=== PATIENT | female | born 1935 | race Caucasian/White ===

== ENCOUNTER 2018-03-12 09:28 | Observation (INO) ==
[2018-03-12] MEDS ORDERED: Ringers Solution, Lactated 500 ML IVC SCH (10:00)
[2018-03-12 10:05] LABS: Basophils # 0.1 K/mcL (0.0-0.2); Eosinophils # 0.2 K/mcL (0.0-0.6); Eosinophils % 3.3 %; Hematocrit 26.9 % (35.3-44.9); Hemoglobin 8.6 g/dL (11.5-15.4); Immature Granulocytes % 0.2 % (0-4); Lymphocytes % 41.8 %; Mean Corpuscular Volume 109.3 fL (83.0-100.0); Mean Platelet Volume 12.9 fL (9.4-12.4); Monocytes # 0.3 K/mcL (0.0-1.3); Monocytes % 6.2 %; Neutrophils # 2.3 K/mcL (1.6-8.9); Platelet Count 197 K/mcL (140-400); Red Blood Count 2.46 M/mcL (3.82-4.97); Red Cell Distribution Width 11.9 % (11.5-14.5); Segmented Neutrophils % 47.5 %
[2018-03-12] MEDS ORDERED: *HR* Midazolam HCl 2 MG/2 ML VIAL IVP ONE (11:18)
[2018-03-12] MEDS ORDERED: *HR* FentaNYL (PF) 100 MCG/2 ML VIAL IVP ONE (11:18)
[2018-03-12] MEDS ORDERED: *HR* FentaNYL (PF) 100 MCG/2 ML VIAL ONE (11:22)
[2018-03-12] MEDS ORDERED: *HR* Midazolam HCl 2 MG/2 ML VIAL ONE (11:22)
--- NOTE | 2018-03-12 11:28 | Pre-Sedation Evaluation ---
Pre-sedation evaluation - Pre-sedation checklist Date of procedure: 03/12/18 Procedure: IR renal biopsy Recent Vitals: Last Vital Signs Temp 98.3 F 03/12/18 10:01 Pulse 55 03/12/18 10:01 Resp 18 03/12/18 10:01 BP 193/70 03/12/18 10:01 Pulse Ox 94 03/12/18 10:01 H&P (including ROS) documented in medical record: Yes Previous reaction to sedatives/anesthetics: No Dietary Status: NPO after Midnight Airway Assessment: Patient can open mouth completely, TMJ function normal, Micrognathia (under-bite, receding chin) absent, Neck with adequate range of motion Possible difficult airway: No ASA Classification *see protocol: CLASS II-Mild systemic disease Plan of Care: Pt appropriate candidate for procedure/moderate/conscious sedation, Risks/benefits of procedure/sedation discussed w/ patient/family, If not NPO; Risk of intake outweiged by necessity to perform procedure Cardiac Registry (Cardio Only) - Clincal Frailty Scale Clinical Frailty Scale: Managing Well
--- NOTE | 2018-03-12 11:28 | History & Physical Report ---
Date of Encounter: 03/12/18 Time of Encounter: 11:20 24 Hour HP Update - Instructions Instructions: If the History and Physical is less than 30 days old and was completed prior to A.M. admission and or procedure and has NOT been updated on calendar day of procedure please complete this update prior to performing procedure. - Update Patient reports changes in Medical Condition: No Changes in examination, assessment, or condition: No Changes in Medication: No Preop tests/diagnostics Reviewed: Yes Pre-Op MRSA Screen: Negative Surgery Remains Indicated: Yes Consent for Planned Operative Procedure(s) Verified: Yes - Pre-Operative Checklist Preoperative Checklist Indicated: Yes Prophylactic Antibiotic Ordered: No Is VTE Prophylaxis Indicated?: NO
--- NOTE | 2018-03-12 11:56 | IR Procedure Note ---
Date of procedure: 03/12/18 Consent Obtained: Written consent Timeout: Correct patient and procedure verified, Correct site verified, Time out performed, Skin prep completed Local anesthetic: Lidocaine 1% Indications: proteinuria Procedure Performed: random renal biopsy Was there an physiotherapist's assistant present: No Site/Technique: left kidney Results/Findings: adequate Estimated blood loss (cc): 5 Complications: None; Tolerated procedure well Post Procedure Treatment Plan: recovery and dc home Specimen: 4 18G renal cortical cores
[2018-03-12] MEDS ORDERED: Naloxone 0.4 MG/ML INJ IVP PRN (14:37)
[2018-03-12] MEDS ORDERED: 0.9 % Sodium Chloride 1,000 ML IVC SCH (14:45)
--- NOTE | 2018-03-12 15:06 | Internal Med History&Physical ---
Date of Encounter: 03/12/18 Time of Encounter: 15:00 Internal Medicine - H&P: HPI Chief complaint: Hematuria s/p renal biopsy for proteinuria History of present illness: Ms. Jane is a 82 year old female with pmh of CVA, hyperlipidemia, hypertension, peripheral artery disease, CKD stage 3 with proteinuria presenting with complaints of hematuria s/p renal biopsy today. Patient was scheduled for a renal biopsy by nephrology for proteinuria. She had the procedure done today by IR and complained of filling her commode twice with grossly bloody urine and blood clots after the procedure. She also complained of right flank pain. IR therefore want her admitted to be observed overnight for further management. 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 AAA repair. left knee repair. hemorrhoidectomy - Social History Smoking Status: Never smoker Smokeless Tobacco Status: No Alcohol use: none Drug use: none - Family History Daughter Living Status: Hx Family Cancer: Yes Son Living Status: Cause of : Heart attack Hx Family Cardiac Disorders: Yes Internal Medicine - H&P: Meds Atenolol 100 mg PO DAILY 10/22/17 [History] Calcitriol [Rocaltrol] 0.25 mg PO DAILY 10/22/17 [History] Colesevelam [Welchol] 1,875 mg PO BID 10/22/17 [History] Ergocalciferol (VITAMIN D2) [Vitamin D2] 50,000 unit PO MO 10/22/17 [History] Febuxostat [Uloric] 80 mg PO DAILY 10/22/17 [History] Gabapentin [Neurontin] 400 mg PO HS 10/22/17 [History] Gemfibrozil [Lopid] 600 mg PO BID 10/22/17 [History] Levothyroxine [Synthroid] 100 mcg PO 0630 10/22/17 [History] Multivit-Minerals/Folic/Ginkgo [One Daily For Women 50+ Adv Tb] 1 tab PO DAILY 10/22/17 [History] [place]-3/Dha/Epa/Fish Oil [[place] 3 500 Softgel] 1 cap PO DAILY 10/22/17 [History] Omeprazole [PriLOSEC] 40 mg PO DAILY 10/22/17 [History] OxyCODONE/APAP 5/325 [Percocet 5/325 MG] 1 tab PO BID PRN 10/22/17 [History] Trazodone HCl 100 mg PO HS 10/22/17 [History] Losartan [Cozaar] 25 mg PO DAILY 03/12/18 [History] Allergy/AdvReac Type Severity Reaction Status Date / Time naproxen [From Naprosyn] Allergy See Verified 02/06/18 15:10 Comments senna Allergy Hives Verified 02/06/18 15:10 All Systems PM: A 10-system review of systems was performed and is negative for pertinent findings except as documented above in the HPI. - Constitutional Constitutional: no chills, no fever(s), no night sweats - EENT Eyes: no change in vision, no discharge, no pain, no photophobia Ears: no ear discharge, no ear pain, no tinnitus Nose, mouth and throat: no dysphagia, no nasal discharge, no neck pain, no sore throat - Cardiovascular Cardiovascular ROS IM: no chest pain, no diaphoresis, no dyspnea, no lightheadedness, no palpitations, no syncope - Respiratory Respiratory: no cough, no dyspnea, no wheezing, no excessive phlegm production - Gastrointestinal Gastrointestinal: no abdominal pain, no diarrhea, no hematemesis, no hematochezia, no melena, no nausea, no vomiting - Genitourinary Genitourinary: flank pain, hematuria, no change in urinary stream, no dysuria - Musculoskeletal Musculoskeletal ROS IM: no numbness, no tingling - Integumentary Integumentary IM: no rash, no unusual bruising - Neurological Neurological ROS: no confusion, no convulsions, no focal weakness, no numbness, no tingling, no tremor(s) - Hematologic/Lymphatic Hematologic/Lymphatic: no easy bruising - Constitutional Vitals: Temp Pulse Resp BP Pulse Ox 97.8 F 55 20 211/71 96 03/12/18 14:22 03/12/18 14:22 03/12/18 14:22 03/12/18 14:22 03/12/18 14:22 Exam: NAD - Head Head exam: Present: atraumatic, normocephalic - Eye Eye exam: Present: PERRL, conjuntiva pink, sclera anicteric Pupils: Present: PERRL - Neck Neck exam general surgery: Present: supple, trachea midline. Absent: lymphadenopathy - Respiratory Respiratory exam: Present: CTAB. Absent: accessory muscle use, rales, rhonchi, wheezes - Cardiovascular Cardiovascular exam: Present: RRR, +S1, +S2. Absent: diastolic murmur, gallop, rubs, systolic murmur - GI/Abdominal GI/Abdominal exam: Present: normal bowel sounds, soft, no peritoneal signs. Absent: distended, tenderness - Additional comments: right flank tenderness - Extremities Exam Extremities exam: Present: warm, radial pulses palpable and symmetrical. Absent: calf tenderness, cyanotic, pedal edema - Neurological Exam Neurological exam: Present: CN II-XII intact, oriented X3, no focal deficits. Absent: pronater drift, facial droop, speech deficit - Skin Skin exam: Present: dry, intact Internal Med - H&P Results - Labs CBC & Chem 7: 03/12/18 15:02 Labs: Short CBC 03/12/18 Range/Units 09:56 WBC 4.9 (4.3-11.1) K/mcL Hgb 8.6 L (11.5-15.4) g/dL Hct 26.9 L (35.3-44.9) % Plt Count 197 (140-400) K/mcL Neutrophils # 2.3 (1.6-8.9) K/mcL - Impressions ITS Impressions Renal Biopsy CT 03/12/18 11:15 IMPRESSION: Successful CT guided cortical core biopsy of the left kidney. The patient did experience hematuria and had to be admitted for observation. D/ / Dedra Taylor MD / Dedra Taylor MD Interpreting Provider: Dedra Taylor MD Abdomen/Pelvis CT 03/12/18 13:43 IMPRESSION: 1. Status post left renal biopsy with findings suggesting acute blood products in the left renal collecting system and urinary bladder. No left subcapsular hematoma or perirenal fluid collections identified. 2. 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 Nonemergent ultrasound could be utilized to confirm the cystic nature of these lesions, as indicated. 3. Diverticulosis without CT evidence of diverticulitis. 4. Small right pleural effusion. D/ / Vasyl Pozo / Vasyl Pozo Interpreting Provider: Vasyl Pozo - Assessment and plan (1) Hemorrhage following kidney biopsy Current Visit: Yes Status: Acute Assessment and plan: Pt presents with hematuria s/p kidney biopsy. Will monitor CBC. Transfuse for hemoglobin less than 7. CBC q 12. Urology consulted and appreciate recs (2) Hematuria Current Visit: Yes Status: Acute Assessment and plan: See #1. Urology following and appreciate recs Qualifiers: Qualified Code(s): R31.9 - Hematuria, unspecified (3) CKD (chronic kidney disease), stage III Current Visit: No Status: Chronic Assessment and plan: CKD stage 3 with proteinuria. Renal on board (4) Acute blood loss anemia Current Visit: Yes Status: Acute Assessment and plan: Hematuria s/p renal biopsy. Follow CBC and transfuse if indicated (5) Hypothyroidism Current Visit: Yes Status: Acute Assessment and plan: Levothyroxine Qualifiers: Qualified Code(s): E03.9 - Hypothyroidism, unspecified (6) DVT prophylaxis Current Visit: Yes Status: Acute Assessment and plan: SCD - Time Spent With Patient Total time spent is greater than 50% in coordination of care (as documented) at patient's floor/unit and/or counseling patient:
[2018-03-12 15:17] LABS: Basophils # 0.1 K/mcL (0.0-0.2); Eosinophils # 0.1 K/mcL (0.0-0.6); Eosinophils % 2.4 %; Hematocrit 25.7 % (35.3-44.9); Hemoglobin 8.2 g/dL (11.5-15.4); Immature Granulocytes % 0.2 % (0-4); Lymphocytes # 1.9 K/mcL (0.6-4.6); Lymphocytes % 33.4 %; Mean Corpuscular HGB Conc 31.9 g/dL (31.6-35.5); Mean Corpuscular Hemoglobin 35.7 pg (28.0-33.3); Mean Corpuscular Volume 111.7 fL (83.0-100.0); Mean Platelet Volume 12.7 fL (9.4-12.4); Monocytes # 0.3 K/mcL (0.0-1.3); Monocytes % 5.6 %; Neutrophils # 3.3 K/mcL (1.6-8.9); Platelet Count 197 K/mcL (140-400); Red Cell Distribution Width 11.9 % (11.5-14.5); Segmented Neutrophils % 57.4 %
[2018-03-12 15:36] LABS: Anisocytosis 1+ (Not Present)
[2018-03-12 15:37] LABS: Macrocytosis Present (Not Present); Platelet Estimate Normal (Normal)
[2018-03-12] MEDS: *HR* OxyCODONE/APAP 5/325 TABLET PO PRN (18:07)
[2018-03-12] MEDS: Gabapentin 400 MG CAPSULE PO SCH (20:55)
[2018-03-12] MEDS: traZODone 50 MG TABLET PO SCH (20:56)
[2018-03-13 05:59] LABS: Hematocrit 21.3 % (35.3-44.9); Hemoglobin 6.7 g/dL (11.5-15.4); Mean Corpuscular HGB Conc 31.5 g/dL (31.6-35.5); Mean Corpuscular Hemoglobin 34.9 pg (28.0-33.3); Mean Corpuscular Volume 110.9 fL (83.0-100.0); Platelet Count 153 K/mcL (140-400); Red Blood Count 1.92 M/mcL (3.82-4.97); Red Cell Distribution Width 12.2 % (11.5-14.5)
[2018-03-13 06:19] LABS: Calcium 8.3 mg/dL (8.6-10.3); Magnesium 1.4 mg/dL (1.6-2.6); Phosphorous 3.4 mg/dL (2.7-4.5); Potassium 4.3 mEq/L (3.5-5.1)
--- NOTE | 2018-03-13 07:34 | Internal Med Progress Note ---
Hospitalist Progress Note - Encounter Date of Encounter: 03/13/18 Time of Encounter: 07:00 - Exam Vitals: Temp Pulse Resp BP Pulse Ox 98.1 F 60 16 138/62 96 03/13/18 04:53 03/13/18 04:53 03/13/18 04:53 03/13/18 04:53 03/13/18 04:53 Exam: Gen - Awake, alert, oriented x 3, no acute distress HEENT - NCAT, PERRLA, EOMI, hearing grossly intact, oropharynx benign CV - RRR, normal S1 and S2, no M/R/G, no BLE edema Resp - Normal WOB, CTAB, no W/R/R GI - Soft, NT/ND, no masses, normal bowel sounds, - left flank tenderness Skin - Warm, dry, no rashes/lesions/ulcers Psych - Normal mood and affect, no depression or anxiety - Assessment and Plan (1) Hemorrhage following kidney biopsy Current Visit: Yes Status: Acute Assessment and Plan: Pt presents with hematuria s/p kidney biopsy. Will monitor CBC. Transfuse for hemoglobin less than 7. CBC q 12. Urology consulted and appreciate recs. Patient's hemoglobin fell to 6.7 and will transfuse 2 units PRBC Obtain retroperitoneal ultrasound. Appreciate renal and urology recs (2) Hematuria Current Visit: Yes Status: Acute Assessment and Plan: See #1. Urology following and appreciate recs (3) CKD (chronic kidney disease), stage III Current Visit: No Status: Chronic Assessment and Plan: CKD stage 3 with proteinuria. Renal on board (4) Acute blood loss anemia Current Visit: Yes Status: Acute Assessment and Plan: Hematuria s/p renal biopsy. Follow CBC and transfuse if indicated (5) Hypothyroidism Current Visit: Yes Status: Acute Assessment and Plan: Levothyroxine (6) DVT prophylaxis Current Visit: Yes Status: Acute Assessment and Plan: SCD - Time Spent with Patient Total time spent is greater than 50% in coordination of care (as documented) at patient's floor/unit and/or counseling patient: Internal Medicine: Result - Labs CBC & Chem 7: 03/13/18 05:33 03/13/18 05:33 Labs: Short CBC 03/12/18 03/12/18 03/13/18 Range/Units 09:56 15:02 05:33 WBC 4.9 5.7 4.6 (4.3-11.1) K/mcL Hgb 8.6 L 8.2 L 6.7 L D (11.5-15.4) g/dL Hct 26.9 L 25.7 L 21.3 L (35.3-44.9) % Plt Count 197 197 153 (140-400) K/mcL Neutrophils # 2.3 3.3 (1.6-8.9) K/mcL BMP 03/13/18 05:33 Sodium 140 Potassium 4.3 Chloride 113 H Carbon Dioxide 21 L BUN 32 H Creatinine 2.65 H Glucose 93 Calcium 8.3 L - Impressions Impressions Renal Biopsy CT 03/12/18 11:15 IMPRESSION: Successful CT guided cortical core biopsy of the left kidney. The patient did experience hematuria and had to be admitted for observation. D/ / 03/12/2018 15:24:16 Dedra Taylor MD / nav Interpreting Provider: Dedra Taylor MD Abdomen/Pelvis CT 03/12/18 13:43 IMPRESSION: 1. Status post left renal biopsy with findings suggesting acute blood products in the left renal collecting system and urinary bladder. No left subcapsular hematoma or perirenal fluid collections identified. 2. 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 Nonemergent ultrasound could be utilized to confirm the cystic nature of these lesions, as indicated. 3. Diverticulosis without CT evidence of diverticulitis. 4. Small right pleural effusion. D/ / Vasyl Pozo / Vasyl Pozo Interpreting Provider: Vasyl Pozo Consult Discharge Plan - Plan Referrals: NONE,PCP [Primary Care Provider] - (2) Hematuria Qualifiers: Qualified Code(s): R31.9 - Hematuria, unspecified (5) Hypothyroidism Qualifiers: Qualified Code(s): E03.9 - Hypothyroidism, unspecified
[2018-03-13] MEDS: Multivit/Ca/Min/Fe/FA 1 TAB TABLET PO SCH (08:04)
[2018-03-13] MEDS ORDERED: EPA PO SCH (09:00)
[2018-03-13] MEDS ORDERED: OMEGA PO SCH (09:00)
[2018-03-13] MEDS ORDERED: DHA PO SCH (09:00)
[2018-03-13] MEDS ORDERED: (Febuxostat [Uloric] 80 MG) PO SCH (09:00)
[2018-03-13] MEDS ORDERED: FISH OIL PO SCH (09:00)
--- NOTE | 2018-03-13 10:04 | Nephrology Consult Note ---
Date of Encounter: 03/13/18 Time of Encounter: 09:25 Assessment and Plan (1) Hematuria Current Visit: Yes Status: Acute Hematuria status post left renal biopsy on 03/12/2018 for further evaluation of rising creatinine. At the time of the biopsy was noted that the patient's blood pressure was elevated which may have contributed to the bleeding. Abdominal CT demonstrated blood in the left renal collecting system and urinary bladder. No capsular hematoma or pair renal fluid collections. Left 1.2 cm in angiomyolipoma and suspected renal cyst. -Patient reports improved hematuria with only a little bit of blood in the urine. -Urology has been consulted by primary team and evaluated the patient deeming that no other intervention was needed on their part. Plan: -retroperitoneal ultrasound pending -continue to monitor the hematuria and H&H Qualifiers: Qualified Code(s): R31.9 - Hematuria, unspecified (2) Acute blood loss anemia Current Visit: Yes Status: Acute Acute blood loss anemia secondary to left renal biopsy performed on 03/12/2018. Patient was having significant hematuria that has improved. Hemoglobin decreased from 8.6 to 6.7. 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 No capsular hematoma or pair renal fluid collections. Left 1.2 cm in angiomyolipoma and suspected renal cyst. -Patient received 2 units packed red blood cells plan: -monitor H&H -will order to check folic acid and methylmalonic acid as she has a macrocyclic anemia in addition to the acute blood loss anemia -transfuse as needed (3) Chronic kidney disease (CKD) Current Visit: Yes Status: Acute Chronic kidney disease stage IV that is currently being worked up by her machine stuffer Dr. Sorto for etiology. Thus the patient had a left renal biopsy performed yesterday. With history of hypertension and diabetes. Etiology differential includes diabetic nephropathy, membranous nephropathy. GFR 17 (baseline 24-29) creatinine 2.65 (baseline 1.9 to 2.2) I&O: 810/250 Plan: -pathology pending on renal biopsy -continue to renal dose medications and avoid nephrotoxic agents -monitor I&O -monitor serum creatinine Qualifiers: Chronic kidney disease stage: unspecified stage Qualified Code(s): N18.9 - Chronic kidney disease, unspecified (4) Hypertension Current Visit: Yes Status: Acute Patient has known hypertension taking losartan -May continue home medication Qualifiers: Hypertension type: essential hypertension Qualified Code(s): I10 - Essential (primary) hypertension (5) Hypomagnesemia Current Visit: No Status: Acute Hypomagnesemia 1.4 -continue to supplement History of Present Illness - Reason for Consult Consult date: 03/12/18 (Hematuria status post renal biopsy) Requesting physician: Otoniel Hough - Chief Complaint Hematuria status post renal biopsy - History of Present Illness Ms. Jane is a 82 year old female with past medical history of of CVA, hyperlipidemia, hypertension, peripheral artery disease who developed hematuria status post renal biopsy. Nephrology was consulted for management. The patient was being worked up for etiology of her increasing creatinine. Her machine stuffer is Dr. Sorto. Upon my examination of the patient she reported that she was still feeling lightheaded and had hematuria however it was improving and not as much as admission. She denies any fever, chills, nausea, vomiting, abdominal pain, chest pain, shortness of breath, dysuria, difficulty urinating. In the ED her hemoglobin had decreased from 8.[address] demonstrated blood in the left renal collecting system and urinary bladder. No capsular hematoma or pair renal fluid collections. Left 1.2 cm in angiomyolipoma and suspected renal cyst. She was given 2 units of packed red blood cells. Past Med Surg Social Fam HX - Past Medical History Attestation: Yes The following information was validated with the patient. 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 AAA repair. left knee repair. hemorrhoidectomy - Social History Smoking Status: Never smoker Smokeless Tobacco Status: No Alcohol use: none Drug use: none - Family History Daughter Living Status: Hx Family Cancer: Yes Son Living Status: Cause of : Heart attack Hx Family Cardiac Disorders: Yes Medications and Allergies Atenolol 100 mg PO DAILY 10/22/17 [History] Calcitriol [Rocaltrol] 0.25 mcg PO DAILY 10/22/17 [History] Colesevelam [Welchol] 1,875 mg PO BID 10/22/17 [History] Ergocalciferol (VITAMIN D2) [Vitamin D2] 50,000 unit PO MO 10/22/17 [History] Febuxostat [Uloric] 80 mg PO DAILY 10/22/17 [History] Gabapentin [Neurontin] 400 mg PO HS 10/22/17 [History] Gemfibrozil [Lopid] 600 mg PO BID 10/22/17 [History] Levothyroxine [Synthroid] 100 mcg PO 0630 10/22/17 [History] Multivit-Minerals/Folic/Ginkgo [One Daily For Women 50+ Adv Tb] 1 tab PO DAILY 10/22/17 [History] [place]-3/Dha/Epa/Fish Oil [[place] 3 500 Softgel] 1 cap PO DAILY 10/22/17 [History] Omeprazole [PriLOSEC] 40 mg PO DAILY 10/22/17 [History] OxyCODONE/APAP 5/325 [Percocet 5/325 MG] 1 tab PO BID PRN 10/22/17 [History] Trazodone HCl 100 mg PO HS 10/22/17 [History] Losartan [Cozaar] 25 mg PO DAILY 03/12/18 [History] Allergy/AdvReac Type Severity Reaction Status Date / Time naproxen [From Naprosyn] Allergy See Verified 02/06/18 15:10 Comments senna Allergy Hives Verified 02/06/18 15:10 Review of Systems Constitutional: no chills, no fatigue, no fever(s), no headache(s), no lethargy Cardiovascular: lightheadedness, no chest pain, no edema, no palpitations Respiratory: no cough, no dyspnea, no wheezing Gastrointestinal: abdominal pain (Suprapubic), no diarrhea, no hematochezia, no melena, no nausea, no vomiting Genitourinary Female: hematuria, pelvic pain (Pressure), no dysuria Musculoskeletal: no muscle cramps Integumentary: no dry skin, no pruritus, no rash Neurological: no loss of vision, no weakness Psychiatric: no confusion Exam - Vital Signs Vital signs: Initial Vital Signs Temp Pulse Resp BP Pulse Ox 98.3 F 55 18 193/70 94 03/12/18 10:01 03/12/18 10:01 03/12/18 10:01 03/12/18 10:01 03/12/18 10:01 Vital Signs - Last 8 Hours Temp Pulse Resp BP Pulse Ox 03/13/18 08:02 98.3 F 54 17 152/54 96 03/13/18 04:53 98.1 F 60 16 138/62 96 Intake and Output 03/12/18 03/13/18 03/13/18 23:59 07:59 15:59 Intake Total 360 / 360 Output Total 250 / 250 Balance -250 / -250 360 / 360 Intake: Oral 360 / 360 Output: Urine 250 / 250 Other: Meal Breakfast Percent of Meal Consumed 100% Stool Size Small Small Stool Consistency soft soft formed Stool Color Bright Red Blood Brown Yellow # Voids 1 # Bowel Movements 1 1 Weight 61.4 kg Blood Glucose* 202 129 Patient Weight 03/13/18 23:59 Weight 61.4 kg - General Appearance General appearance: well-developed, well-nourished, appears started age EENT: mucous membranes moist Neck: no JVD, supple Respiratory: clear Cardiology: no murmurs, no rub, no edema, regular rate, regular rhythm Gastrointestinal: tenderness (Suprapubic), no guarding, no organomegaly Integumentary: no rash, warm and dry Neurologic: no focal deficit, alert and oriented x3, CN 3-12 intact Musculoskeletal: no erythema, no cyanosis Psychiatric: mood/affect appropriate, cooperative Results - Lab Results 03/13/18 05:33 03/13/18 05:33 Most recent lab results Calcium 8.3 mg/dL (8.6-10.3) L 03/13/18 05:33 Phosphorus 3.4 mg/dL (2.7-4.5) 03/13/18 05:33 Magnesium 1.4 mg/dL (1.6-2.6) L 03/13/18 05:33 Consult Discharge Plan - Plan Referrals: NONE,PCP [Primary Care Provider] -
[2018-03-13] MEDS ORDERED: 0.9 % Sodium Chloride 250 ML ONE ×2 (10:14→15:01)
--- NOTE | 2018-03-13 10:17 | IR Progress Note ---
Narrative: c/o pressure in pelvis, urine clearing and now pink Vital Signs: Vital Signs/O2 Sat, Most Current Temp Pulse Resp BP Pulse Ox 98.3 F 54 17 152/54 96 03/13/18 08:02 03/13/18 08:02 03/13/18 08:02 03/13/18 08:02 03/13/18 08:02 Recent Labs: Lab Results 03/13/18 03/13/18 03/12/18 05:33 05:33 15:02 WBC 4.6 5.7 RBC 1.92 L 2.30 L Hgb 6.7 L D 8.2 L Hct 21.3 L 25.7 L MCV 110.9 H 111.7 H MCH 34.9 H 35.7 H MCHC 31.5 L 31.9 RDW 12.2 11.9 Plt Count 153 197 MPV 13.0 H 12.7 H Neutrophils # 3.3 Lymphocytes # 1.9 Monocytes # 0.3 Eosinophils # 0.1 Basophils # 0.1 Sodium 140 Potassium 4.3 Chloride 113 H Carbon Dioxide 21 L BUN 32 H Creatinine 2.65 H Est GFR ( Amer) 21 L Est GFR (Non-Af Amer) 17 L BUN/Creatinine Ratio 12 Glucose 93 Calcium 8.3 L Phosphorus 3.4 Magnesium 1.4 L 03/12/18 09:56 WBC 4.9 RBC 2.46 L Hgb 8.6 L Hct 26.9 L MCV 109.3 H MCH 35.0 H MCHC 32.0 RDW 11.9 Plt Count 197 MPV 12.9 H Neutrophils # 2.3 Lymphocytes # 2.0 Monocytes # 0.3 Eosinophils # 0.2 Basophils # 0.1 Sodium Potassium Chloride Carbon Dioxide BUN Creatinine Est GFR ( Amer) Est GFR (Non-Af Amer) BUN/Creatinine Ratio Glucose Calcium Phosphorus Magnesium Assessment and Plan S/P renal biopsy complicated by hematuria. CT scan shows no perinephric hematoma but blood in collecting system and bladder. BP stable. Hb down to 6.7 from 8.6. She is to get transfused per HMS. Overall, she is improving. Will continue to follow until D/C.
[2018-03-13] MEDS ORDERED: Preparation H Ointment 30 GM TUBE TP PRN (14:25)
--- NOTE | 2018-03-13 14:30 | Urology - Consult Note ---
Date of Encounter: 03/13/18 Time of Encounter: 14:28 Urology CN:GILSON Consult date: 03/13/18 Reason for consult Urology: Gross Hematuria Requesting physician: Dedra Taylor History of present illness: Very pleasant 82-year-old lady who was admitted to the hospital yesterday for renal biopsy. She had the postprocedural complication of bleeding into the collecting system and urine. her bleed was quite heavily yesterday but has settled to pink at the current time. Her hemoglobin did drop 2 g and she required transfusion this morning. CT was obtained which shows clot in the renal pelvis consistent with a clinical picture above. 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 AAA repair. left knee repair. hemorrhoidectomy - Social History Smoking Status: Never smoker Smokeless Tobacco Status: No Alcohol use: none Drug use: none - Family History Daughter Living Status: Hx Family Cancer: Yes Son Living Status: Cause of : Heart attack Hx Family Cardiac Disorders: Yes Medications and Allergies Atenolol 100 mg PO DAILY 10/22/17 [History] Calcitriol [Rocaltrol] 0.25 mcg PO DAILY 10/22/17 [History] Colesevelam [Welchol] 1,875 mg PO BID 10/22/17 [History] Ergocalciferol (VITAMIN D2) [Vitamin D2] 50,000 unit PO MO 10/22/17 [History] Febuxostat [Uloric] 80 mg PO DAILY 10/22/17 [History] Gabapentin [Neurontin] 400 mg PO HS 10/22/17 [History] Gemfibrozil [Lopid] 600 mg PO BID 10/22/17 [History] Levothyroxine [Synthroid] 100 mcg PO 0630 10/22/17 [History] Multivit-Minerals/Folic/Ginkgo [One Daily For Women 50+ Adv Tb] 1 tab PO DAILY 10/22/17 [History] [place]-3/Dha/Epa/Fish Oil [[place] 3 500 Softgel] 1 cap PO DAILY 10/22/17 [History] Omeprazole [PriLOSEC] 40 mg PO DAILY 10/22/17 [History] OxyCODONE/APAP 5/325 [Percocet 5/325 MG] 1 tab PO BID PRN 10/22/17 [History] Trazodone HCl 100 mg PO HS 10/22/17 [History] Losartan [Cozaar] 25 mg PO DAILY 03/12/18 [History] Allergy/AdvReac Type Severity Reaction Status Date / Time naproxen [From Naprosyn] Allergy See Verified 02/06/18 15:10 Comments senna Allergy Hives Verified 02/06/18 15:10 Review of Systems - Constitutional no chills, no fever(s) - EENT Nose, mouth and throat: no dizziness, no sore throat - Cardiovascular no diaphoresis, no dyspnea - Respiratory no cough - Gastrointestinal abdominal pain - Genitourinary Genitourinary: no flank pain - Musculoskeletal no muscle weakness - Integumentary no lesions, no rash - Neurological no confusion, no sensory deficit - Psychiatric no anxiety, no confusion - Hematologic/Lymphatic no easy bleeding, no easy bruising - Allergic/Immunologic no throat swelling Exam Initial Vital Signs Temp Pulse Resp BP Pulse Ox 98.3 F 55 18 193/70 94 03/12/18 10:01 03/12/18 10:01 03/12/18 10:01 03/12/18 10:01 03/12/18 10:01 Urology Results - Labs 03/13/18 05:33 03/13/18 05:33 Abnormal lab results RBC 1.92 M/mcL (3.82-4.97) L 03/13/18 05:33 Hgb 6.7 g/dL (11.5-15.4) L D 03/13/18 05:33 Hct 21.3 % (35.3-44.9) L 03/13/18 05:33 MCV 110.9 fL (83.0-100.0) H 03/13/18 05:33 MCH 34.9 pg (28.0-33.3) H 03/13/18 05:33 MCHC 31.5 g/dL (31.6-35.5) L 03/13/18 05:33 MPV 13.0 fL (9.4-12.4) H 03/13/18 05:33 Anisocytosis 1+ (Not Present) A 03/12/18 15:02 Macrocytosis Present (Not Present) A 03/12/18 15:02 Chloride 113 mEq/L (98-107) H 03/13/18 05:33 Carbon Dioxide 21 mEq/L (23-29) L 03/13/18 05:33 BUN 32 mg/dL (8-23) H 03/13/18 05:33 Creatinine 2.65 mg/dL (0.60-1.20) H 03/13/18 05:33 Est GFR ( Amer) 21 (> 60) L 03/13/18 05:33 Est GFR (Non-Af Amer) 17 (> 60) L 03/13/18 05:33 POC Glucose 141 mg/dL (70-99) H 03/13/18 11:36 Calcium 8.3 mg/dL (8.6-10.3) L 03/13/18 05:33 Magnesium 1.4 mg/dL (1.6-2.6) L 03/13/18 05:33 Diabetes panel 03/13/18 Range/Units 05:33 Sodium 140 (136-145) mEq/L Potassium 4.3 (3.5-5.1) mEq/L Chloride 113 H (98-107) mEq/L Carbon Dioxide 21 L (23-29) mEq/L BUN 32 H (8-23) mg/dL Creatinine 2.65 H (0.60-1.20) mg/dL Glucose 93 (70-105) mg/dL Calcium 8.3 L (8.6-10.3) mg/dL Calcium panel 03/13/18 Range/Units 05:33 Calcium 8.3 L (8.6-10.3) mg/dL Phosphorus 3.4 (2.7-4.5) mg/dL Pituitary panel 03/13/18 Range/Units 05:33 Sodium 140 (136-145) mEq/L Potassium 4.3 (3.5-5.1) mEq/L Chloride 113 H (98-107) mEq/L Carbon Dioxide 21 L (23-29) mEq/L BUN 32 H (8-23) mg/dL Creatinine 2.65 H (0.60-1.20) mg/dL Glucose 93 (70-105) mg/dL Calcium 8.3 L (8.6-10.3) mg/dL Adrenal panel 03/13/18 Range/Units 05:33 Sodium 140 (136-145) mEq/L Potassium 4.3 (3.5-5.1) mEq/L Chloride 113 H (98-107) mEq/L Carbon Dioxide 21 L (23-29) mEq/L BUN 32 H (8-23) mg/dL Creatinine 2.65 H (0.60-1.20) mg/dL Glucose 93 (70-105) mg/dL Calcium 8.3 L (8.6-10.3) mg/dL All other labs normal. - Imaging CT scan - abdomen: report reviewed CT scan - pelvis: report reviewed Consult Discharge Plan - Plan Referrals: NONE,PCP [Primary Care Provider] -
[2018-03-13] MEDS ORDERED: *HR* Labetalol 20 MG/4 ML SYRINGE IVP ONE (20:16)
[2018-03-13] MEDS: Gabapentin 400 MG CAPSULE PO SCH (20:47)
[2018-03-13] MEDS: *HR* OxyCODONE/APAP 5/325 TABLET PO PRN (20:47)
[2018-03-13] MEDS: traZODone 50 MG TABLET PO SCH (20:47)
[2018-03-14 05:16] LABS: Hematocrit 27.6 % (35.3-44.9); Mean Corpuscular HGB Conc 32.2 g/dL (31.6-35.5); Mean Corpuscular Hemoglobin 33.3 pg (28.0-33.3); Mean Platelet Volume 12.9 fL (9.4-12.4); Platelet Count 141 K/mcL (140-400); Red Blood Count 2.67 M/mcL (3.82-4.97)
[2018-03-14 05:31] LABS: Calcium 8.6 mg/dL (8.6-10.3); Magnesium 1.5 mg/dL (1.6-2.6); Potassium 4.2 mEq/L (3.5-5.1)
[2018-03-14 05:35] LABS: Hemoglobin 8.9 g/dL (11.5-15.4); Mean Corpuscular Volume 103.4 fL (83.0-100.0)
--- NOTE | 2018-03-14 07:26 | Discharge Summary ---
Orders not resulted at time of discharge: Pending orders 03/14/18 04:51 MMA (VIT B12 STATUS) AM 0400 03/14/18 12:00 Hemoglobin and Hematocrit [HEME] Timed Date of Encounter: 03/14/18 Time of Encounter: 07:00 - Discharge Diagnosis (1) Hemorrhage following kidney biopsy Priority: Primary Status: Acute Assessment and Plan: 82 year old female with pmh of CVA, hyperlipidemia, hypertension, peripheral artery disease, CKD stage 3 with proteinuria presenting with complaints of hematuria s/p renal biopsy today. Patient was scheduled for a renal biopsy by nephrology for proteinuria. She had the procedure done by IR and complained of filling her commode twice with grossly bloody urine and blood clots after the procedure. She was assessed with hemorrhage s/p kidney biopsy and seen by renal and u rology. Her hemoglobin dropped to 6.7 and she was transfused 2 units PRBC. Her hemoglobin has been stable. She had a retroperitoneal ultrasound done that showed a clot in the bladder but urology has determined no acute intervention is indicated. She was discharged in a stable condition and will follow up with renal as an outpatient (2) Hematuria Priority: Primary Status: Acute Qualifiers: Qualified Code(s): R31.9 - Hematuria, unspecified (3) CKD (chronic kidney disease), stage III Priority: Primary Status: Chronic (4) Acute blood loss anemia Priority: Primary Status: Acute (5) Hypothyroidism Priority: Primary Status: Acute Qualifiers: Qualified Code(s): E03.9 - Hypothyroidism, unspecified (6) DVT prophylaxis Priority: Primary Status: Acute Hospital course: Ms. Jane is a 82 year old female - Time Spent with Patient Total time spent providing and/or coordinating discharge services: - Discharge Medications Home Medications: Atenolol 100 mg PO DAILY 10/22/17 [History] Calcitriol [Rocaltrol] 0.25 mcg PO DAILY 10/22/17 [History] Colesevelam [Welchol] 1,875 mg PO BID 10/22/17 [History] Ergocalciferol (VITAMIN D2) [Vitamin D2] 50,000 unit PO MO 10/22/17 [History] Febuxostat [Uloric] 80 mg PO DAILY 10/22/17 [History] Gabapentin [Neurontin] 400 mg PO HS 10/22/17 [History] Gemfibrozil [Lopid] 600 mg PO BID 10/22/17 [History] Levothyroxine [Synthroid] 100 mcg PO 0630 10/22/17 [History] Multivit-Minerals/Folic/Ginkgo [One Daily For Women 50+ Adv Tb] 1 tab PO DAILY 10/22/17 [History] [place]-3/Dha/Epa/Fish Oil [[place] 3 500 Softgel] 1 cap PO DAILY 10/22/17 [History] Omeprazole [PriLOSEC] 40 mg PO DAILY 10/22/17 [History] OxyCODONE/APAP 5/325 [Percocet 5/325 MG] 1 tab PO BID PRN 10/22/17 [History] Trazodone HCl 100 mg PO HS 10/22/17 [History] Losartan [Cozaar] 25 mg PO DAILY 03/12/18 [History] Allergies/Adverse Reactions: Allergy/AdvReac Type Severity Reaction Status Date / Time naproxen [From Naprosyn] Allergy See Verified 02/06/18 15:10 Comments senna Allergy Hives Verified 02/06/18 15:10 Date of admission: 03/12/18 14:13 Primary care physician: PCP NONE Consults: 03/12/18 14:45 Consult to Urology [CONS] Routine Consulting Provider: [facility] Reason for Consult: hematuria s/p renal biopsy Call Completed: Yes 03/12/18 18:42 Consult to Nephrology [CONS] Routine Consulting Provider: [facility]/ORIJASPER/JUAM/BROWN Reason for Consult: hematuria s/p renal biopsy Call Completed: Yes - Constitutional Vitals: Temp Pulse Resp BP Pulse Ox 99.1 F 55 18 128/64 96 03/14/18 06:55 03/14/18 06:55 03/14/18 06:55 03/14/18 06:55 03/14/18 06:55 Exam: Gen - Awake, alert, oriented x 3, no acute distress HEENT - NCAT, PERRLA, EOMI, hearing grossly intact, oropharynx benign CV - RRR, normal S1 and S2, no M/R/G, no BLE edema Resp - Normal WOB, CTAB, no W/R/R GI - Soft, NT/ND, no masses, normal bowel sounds, - left flank tenderness Skin - Warm, dry, no rashes/lesions/ulcers Psych - Normal mood and affect, no depression or anxiety - Patient Status Disposition: Home, Self-Care Condition: Good - Discharge Instructions Instructions: Percutaneous Kidney Biopsy (DC) Follow Up With: Litzy Crouch CNP [Advanced Practice Nurse] - 03/18/18 10:30 am (PRODUCT MARKETING COORDINATOR IN WITH )
[2018-03-14] MEDS: Multivit/Ca/Min/Fe/FA 1 TAB TABLET PO SCH (08:45)
[2018-03-14 11:16] VITALS: BP 199/62
[2018-03-14 13:53] LABS: Hematocrit 27.5 % (35.3-44.9); Hemoglobin 8.8 g/dL (11.5-15.4)
== END 2018-03-14 15:09 | disposition home or self-care (01) ==
LOC: 2ANU 09:28 → RAD 09:28
PROVIDERS: ADMIT Internal Medicine Nephrology; ATTEND Internal Medicine Nephrology